=== PATIENT | female | born 1995 | race Native Hawaiian/Other Pacific Islander ===

== ENCOUNTER 2017-02-17 12:49 | Emergency (ER) | payer OTHER ==
[2017-02-17] MEDS ORDERED: Zofran 4 MG/2 ML VIAL IV ONE (13:16)
[2017-02-17] MEDS ORDERED: PROTONIX 40 MG IV IV ONE ×2 (13:16→13:20)
[2017-02-17] MEDS ORDERED: Sodium Chloride 0.9% 1000 ML 1,000 ML IV STA (13:16)
[2017-02-17] MEDS ORDERED: Zofran 4 MG/2 ML VIAL ONE (13:20)
[2017-02-17] MEDS ORDERED: Sodium Chloride 0.9% 1000 ML 1,000 ML ONE (13:20)
--- NOTE | 2017-02-17 13:27 | ERPHSYRPT ---
- History of Present Illness Time Seen by Provider: 02/17/17 13:10 Historian: patient Exam Limitations: clinical condition Patient Subjective Stated Complaint: vomiting for sat. was called in zoan and states it did not help. vomited x2 today, sips of 7 up today,has not void since last night, no fever at home Triage Nursing Assessment: pt alert, walked in , resp easy, skin w/d. lips moist , pain from vomiting Physician History: PATIENT WITH A HISTORY OF IRRITABLE BOWEL DISEASE COMPLAINS OF FREQUENT EPISODES OF EMESIS FOR 6 DAYS, 15-20 TIMES DAILY. DENIES DIARRHEA, FEVER AND ABDOMINAL . ALSO ADMITS TO HAVING ANTERIOR CHEST PAINS WORSE UPON INSPIRATION. DENIES DYSPNEA, DIAPHORESIS OR PALPITATIONS. Timing/Duration: day(s) (6 DAYS AGO) Activities at Onset: none Quality: sharpness, stabbing Pain Radiation: no radiation Severity of Pain-Max: moderate Severity of Pain-Current: moderate Associated Symptoms: chest pain Previous symptoms: no prior history Allergies/Adverse Reactions: amoxicillin Allergy (Verified 02/17/17 12:59) Home Medications: Eluxadoline [Viberzi] 100 mg DAILY 02/17/17 [History] Hx Tetanus, Diphtheria Vaccination/Date Given: Yes Hx Influenza Vaccination/Date Given: Yes Hx Pneumococcal Vaccination/Date Given: No Immunizations Up to Date: Yes - Review of Systems Constitutional: No Fever, No Chills Eyes: No Symptoms Ears, Nose, & Throat: No Symptoms Respiratory: No Cough, No Dyspnea Cardiac: Chest Pain, No Edema, No Syncope Abdominal/Gastrointestinal: Nausea, Vomiting, No Abdominal Pain, No Diarrhea Genitourinary Symptoms: No Symptoms, No Dysuria Musculoskeletal: No Symptoms, No Back Pain, No Neck Pain Skin: No Symptoms, No Rash Neurological: No Dizziness, No Focal Weakness, No Sensory Changes Psychological: No Symptoms Endocrine: No Symptoms All Other Systems: Reviewed and Negative - Past Medical History Pertinent Past Medical History: No - Past Surgical History Past Surgical History: No - Social History Smoking Status: Never smoker Exposure to second hand smoke: Yes Drug Use: none Patient Lives Alone: No - Female History Hx Last Menstrual Period: last week - Nursing Vital Signs Nursing Vital Signs: Initial Vital Signs Temperature 97.9 F Temperature Source Oral Pulse Rate 72 Respiratory Rate 16 Blood Pressure [Right Arm] 125/65 Pain Intensity 8 - Physical Exam General Appearance: no apparent distress, alert Eye Exam: PERRL/EOMI, eyes nml inspection Ears, Nose, Throat Exam: normal ENT inspection, pharynx normal, moist mucous membranes Neck Exam: normal inspection, non-tender, supple, full range of motion Respiratory Exam: normal breath sounds, chest tenderness (BILATERAL PARASTERNAL TENDERNESS T-2 TO T-5), lungs clear, No respiratory distress Cardiovascular Exam: regular rate/rhythm, normal heart sounds Gastrointestinal/Abdomen Exam: soft, normal bowel sounds (NONTENDERNESS), No tenderness, No mass Back Exam: normal inspection, normal range of motion, No CVA tenderness, No vertebral tenderness Extremity Exam: normal inspection, normal range of motion, pelvis stable Neurologic Exam: alert, oriented x 3, cooperative, normal mood/affect, nml cerebellar function, sensation nml, No motor deficits Skin Exam: normal color, warm, dry Lymphatic Exam: adenopathy SpO2 Interpretation: normal SpO2: 98 Oxygen Delivery: Room Air - Course EKG Interpreted by Me: RATE, Sinus Rhythm, NORMAL AXIS (RATE OF 87) - Radiology Exams Abdomen X-ray Interpretation: Discussed w/ radiologist (NO EVIDENCE OF FREE AIR OR BOWEL OBSTRUCTION) Ordered Tests: Active Orders 24 hr Category Date Time Status Clean Catch Urine Specimen STAT Care 02/17/17 13:28 Active EKG-ER Only STAT Care 02/17/17 13:16 Active IV Insertion STAT Care 02/17/17 13:16 Active OBSTR/ACUTE ABDOMEN SERIES Stat Exams 02/17/17 13:32 Taken AMYLASE Stat Lab 02/17/17 13:15 Completed CBC W DIFF Stat Lab 02/17/17 13:15 Completed CMP Stat Lab 02/17/17 13:15 Completed CULTURE,URINE Stat Lab 02/17/17 14:00 Received D-DIMER QUANTITATION Stat Lab 02/17/17 13:15 Completed HCG,QUALITATIVE URINE Stat Lab 02/17/17 13:28 Completed LIPASE Stat Lab 02/17/17 13:15 Completed PROTIME WITH INR Stat Lab 02/17/17 13:15 Completed TROPONIN Stat Lab 02/17/17 13:15 Completed UA W/ MICROSCOPIC Stat Lab 02/17/17 14:00 Completed Urine Triage Profile Stat Lab 02/17/17 13:15 Completed Medication Summary Discontinued Medications Generic Name Dose Route Start Last Admin Trade Name Freq PRN Reason Stop Dose Admin Sodium Chloride 1,000 mls @ 999 mls/hr 02/17/17 13:16 02/17/17 13:21 Sodium Chloride 0.9% 1000 Ml IV 02/17/17 14:16 999 mls/hr .Q1H1M STA Administration Sodium Chloride Confirm 02/17/17 13:20 Sodium Chloride 0.9% 1000 Ml Administered 02/17/17 13:21 Dose 1,000 mls @ ud .ROUTE .STK-MED ONE Ketorolac Tromethamine 30 mg 02/17/17 13:43 02/17/17 13:45 Toradol 30 Mg Injection IV 02/17/17 13:44 30 mg STAT ONE Administration Ketorolac Tromethamine Confirm 02/17/17 13:45 Toradol 30 Mg Injection Administered 02/17/17 13:46 Dose 30 mg .ROUTE .STK-MED ONE Ondansetron HCl 4 mg 02/17/17 13:16 02/17/17 13:21 Zofran 4 Mg/2 Ml Vial IV 02/17/17 13:17 4 mg STAT ONE Administration Ondansetron HCl Confirm 02/17/17 13:20 Zofran 4 Mg/2 Ml Vial Administered 02/17/17 13:21 Dose 4 mg .ROUTE .STK-MED ONE Pantoprazole Sodium 40 mg 02/17/17 13:16 02/17/17 13:21 Protonix 40 Mg Iv IV 02/17/17 13:17 40 mg STAT ONE Administration Pantoprazole Sodium Confirm 02/17/17 13:20 Protonix 40 Mg Iv Administered 02/17/17 13:21 Dose 40 mg IV .STK-MED ONE Lab/Rad Data: Laboratory Result Diagrams 02/17/17 13:15 02/17/17 13:15 Laboratory Results 02/17/17 02/17/17 02/17/17 Range/Units 14:00 13:28 13:15 WBC (4.0-10.5) K/mm3 RBC (4.1-5.4) M/mm3 Hgb (12.0-16.0) gm/dl Hct (35-47) % MCV (78-100) fl MCH (26-32) pg MCHC (32-36) g/dl RDW (11.5-14.0) % Plt Count (150-450) K/mm3 MPV (6-9.5) fl Gran % (36.0-66.0) % Lymphocytes % (24.0-44.0) % Monocytes % (0.0-12.0) % Eosinophils % (0.00-5.0) % Basophils % (0.0-0.4) % Basophils # (0-0.4) INR 0.99 (0.8-3.0) D-Dimer 228 (0-500) ng/mL Sodium (136-145) mEq/L Potassium (3.5-5.1) mEq/L Chloride (98-107) mEq/L Carbon Dioxide (21-32) mEq/L Anion Gap (5-15) MEQ/L BUN (9-20) mg/dL Creatinine (0.55-1.30) mg/dl Estimated GFR ML/MIN Glucose (70-110) MG/DL Calcium (8.5-10.1) mg/dL Total Bilirubin (0.2-1.0) mg/dL AST (15-37) U/L ALT (12-78) U/L Alkaline Phosphatase (46-116) U/L Troponin I (0.000-0.056) ng/ml Serum Total Protein (6.4-8.2) gm/dL Albumin (3.4-5.0) g/dL Amylase (25-115) U/L Lipase (73-393) U/L Ur Collection Type VOID Urine Color YELLOW (YELLOW) Urine Appearance HAZY (CLEAR) Urine pH 5.0 (5-6) Ur Specific [place] 1.020 (1.005-1.025) Urine Protein NEGATIVE (Negative) Urine Ketones MODERATE (NEGATIVE) Urine Blood NEGATIVE (0-5) Elian/ul Urine Nitrite NEGATIVE (NEGATIVE) Urine Bilirubin SMALL (NEGATIVE) Urine Urobilinogen NORMAL (0-1) mg/dL Ur Leukocyte Esterase TRACE (NEGATIVE) Urine Microscopic WBC 2-5 (0-5) /HPF Ur Epithelial Cells PACKED (FEW) /HPF Urine Bacteria MODERATE (NEGATIVE) /HPF Urine Mucus MANY (NEGATIVE) /HPF Urine Glucose NEGATIVE (NEGATIVE) mg/dL Urine HCG, Qual NEGATIVE (Negative) Urine Opiates Level (NEGATIVE) Ur Methadone (NEGATIVE) Urine Barbiturates (NEGATIVE) Ur Phencyclidine (PCP) (NEGATIVE) Urine Amphetamine (NEGATIVE) U Benzodiazepine Level (NEGATIVE) Urine Cocaine (NEGATIVE) Urine Marijuana (THC) (NEGATIVE) Specimen Received 02/17/17 1400 02/17/17 02/17/17 02/17/17 Range/Units 13:15 13:15 13:15 WBC 8.5 (4.0-10.5) K/mm3 RBC 5.15 (4.1-5.4) M/mm3 Hgb 14.9 (12.0-16.0) gm/dl Hct 45.5 (35-47) % MCV 88.3 (78-100) fl MCH 28.9 (26-32) pg MCHC 32.7 (32-36) g/dl RDW 14.0 (11.5-14.0) % Plt Count 324 (150-450) K/mm3 MPV 10.3 H (6-9.5) fl Gran % 59.2 (36.0-66.0) % Lymphocytes % 32.9 (24.0-44.0) % Monocytes % 7.1 (0.0-12.0) % Eosinophils % 0.4 (0.00-5.0) % Basophils % 0.4 (0.0-0.4) % Basophils # 0.03 (0-0.4) INR (0.8-3.0) D-Dimer (0-500) ng/mL Sodium 141 (136-145) mEq/L Potassium 3.6 (3.5-5.1) mEq/L Chloride 104 (98-107) mEq/L Carbon Dioxide 21.5 (21-32) mEq/L Anion Gap 19.4 H (5-15) MEQ/L BUN 17 (9-20) mg/dL Creatinine 1.36 H (0.55-1.30) mg/dl Estimated GFR 52 ML/MIN Glucose 97 (70-110) MG/DL Calcium 10.3 H (8.5-10.1) mg/dL Total Bilirubin 0.90 (0.2-1.0) mg/dL AST 42 H (15-37) U/L ALT 29 (12-78) U/L Alkaline Phosphatase 66 (46-116) U/L Troponin I < 0.017 (0.000-0.056) ng/ml Serum Total Protein 8.5 H (6.4-8.2) gm/dL Albumin 4.5 (3.4-5.0) g/dL Amylase 47 (25-115) U/L Lipase 151 (73-393) U/L Ur Collection Type Urine Color (YELLOW) Urine Appearance (CLEAR) Urine pH (5-6) Ur Specific [place] (1.005-1.025) Urine Protein (Negative) Urine Ketones (NEGATIVE) Urine Blood (0-5) Elian/ul Urine Nitrite (NEGATIVE) Urine Bilirubin (NEGATIVE) Urine Urobilinogen (0-1) mg/dL Ur Leukocyte Esterase (NEGATIVE) Urine Microscopic WBC (0-5) /HPF Ur Epithelial Cells (FEW) /HPF Urine Bacteria (NEGATIVE) /HPF Urine Mucus (NEGATIVE) /HPF Urine Glucose (NEGATIVE) mg/dL Urine HCG, Qual (Negative) Urine Opiates Level NEG. (NEGATIVE) Ur Methadone NEG. (NEGATIVE) Urine Barbiturates NEG. (NEGATIVE) Ur Phencyclidine (PCP) NEG. (NEGATIVE) Urine Amphetamine POS. (NEGATIVE) U Benzodiazepine Level NEG. (NEGATIVE) Urine Cocaine POS. (NEGATIVE) Urine Marijuana (THC) POS. (NEGATIVE) Specimen Received - Progress Progress Note: 02/17/17 13:30 PATIENT GIVEN IV NORMAL SALINE 1 LITER BOLUS OVER 1 HOUR, ZOFRAN 4MG, PROTONIX 40MG IV, TORADOL 30MG IV. 02/17/17 14:56 EKG AND TROPONIN NEGATIVE, URINE DRUG SCREEN POSITIVE AMPHETAMINES/COCAINE/THC 02/17/17 15:06 PATIENT HAD NO EPISODES OF EMESIS WHILE IN THE EMERGENCY ROOM Counseled pt/family regarding: lab results, diagnosis, need for follow-up - Departure Time of Disposition: 15:07 Departure Disposition: Home Clinical Impression: ACUTE EMESIS, POLYSUBSTANCE ABUSE Condition: Stable Critical Care Time: No Additional Instructions: DRINK PLENTY OF FLUIDS. TORADOL 30MG EVERY 6 HOURS FOR PAIN NEEDED. PHENERGAN 25MG EVERY 4 HOURS NEEDED FOR NAUSEA. BEGIN A CLEAR LIQUID DIET FOR 24 HOURS AND THEN ADVANCE YOUR DIET TOLERATED. CONSULT YOUR PRIMARY CARE PHYSICIAN FOR EVALUATION AND TREATMENT. Prescriptions: Ketorolac Tromethamine [Toradol] 10 mg PO Q6H PRN PRN #20 tablet PRN Reason: Pain Promethazine HCl 25 mg [Phenergan 25 mg] 25 mg PO Q6H PRN PRN #10 tablet PRN Reason: Nausea
[2017-02-17 13:35] LABS: BASOPHIL % 0.4 % (0.0-0.4); Eosinophil % 0.4 % (0.00-5.0); Granulocytes % 59.2 % (36.0-66.0); Lymphocytes % 32.9 % (24.0-44.0); Mean Cell Volume 88.3 fl (78-100); Mean Corpuscular Hemoglobin 28.9 pg (26-32); Mean Platelet Volume 10.3 fl (6-9.5); Monocytes % 7.1 % (0.0-12.0); Platelet Count 324 K/mm3 (150-450); Red Blood Count 5.15 M/mm3 (4.1-5.4); White Blood Count 8.5 K/mm3 (4.0-10.5)
[2017-02-17] MEDS ORDERED: TORAdol 30 mg Injection IV ONE (13:43)
[2017-02-17] MEDS ORDERED: TORAdol 30 mg Injection ONE (13:45)
[2017-02-17 14:02] LABS: ALBUMIN 4.5 g/dL (3.4-5.0); ALKALINE PHOSPHATASE 66 U/L (46-116); ANION GAP 19.4 MEQ/L (5-15); BLOOD UREA NITROGEN 17 mg/dL (9-20); CHLORIDE 104 mEq/L (98-107); Carbon Dioxide 21.5 mEq/L (21-32); Glucose 97 MG/DL (70-110); LIPASE 151 U/L (73-393); Potassium 3.6 mEq/L (3.5-5.1); SGOT/AST 42 U/L (15-37); SGPT/ALT 29 U/L (12-78); SODIUM 141 mEq/L (136-145); TROPONIN < 0.017 ng/ml (0.000-0.056); Total Protein 8.5 gm/dL (6.4-8.2)
[2017-02-17 14:37] LABS: Collection Type VOID
[2017-02-17 14:38] LABS: Bacteria MODERATE /HPF (NEGATIVE); Bilirubin SMALL (NEGATIVE); Blood NEGATIVE Ery/ul (0-5); COMPLETE URINE MICROSCOPIC? YES; Epithelial Cells PACKED /HPF (FEW); Glucose NEGATIVE (NEGATIVE); Mucus MANY /HPF (NEGATIVE)
[2017-02-17 14:41] LABS: Leukocyte Esterase TRACE (NEGATIVE)
[2017-02-17 14:44] LABS: ADD URINE CULTURE? YES (NO)
[2017-02-17 14:45] LABS: INR 0.99 (0.8-3.0); PROTIME 11.2 SECONDS (9.95-12.35)
--- NOTE | 2017-02-17 15:01 | XRAY ---
Indication: Vomiting. Comparison: None 2 views of the abdomen nonacute and nonobstructed. Solid organs unremarkable. Osseous structures intact with mild levoscoliosis. Single PA chest demonstrates normal heart, lungs, and bony thorax with incidental calcified granulomas. Impression: Negative abdomen. Nonacute 1 view chest.
[2017-02-17 15:05] VITALS: O2SAT 98
[2017-02-17 15:15] VITALS: BP 105/60; PULSE 70
== END 2017-02-17 15:16 | disposition home or self-care (01) ==
LOC: ED 12:49
DX: R11.10 Vomiting, unspecified (principal); F19.10 Other psychoactive substance abuse, uncomplicated; R11.2 Nausea with vomiting, unspecified; R07.89 Other chest pain
CPT/HCPCS: 36000; 36415; 74022; 80053; 80307; 81000; 82150; 83690; 84484; 84703; 85025; 85379; 85610; 87086; 93005; 96360; 96374; 96375; 99285; J1885; J2405